=== PATIENT | female | born 1965 | race Two or more races ===

== ENCOUNTER 2022-09-01 08:05 | Outpatient (REF) | payer OTHER, SELFPAY ==
--- NOTE | ~2022-09-01 | XR_ITS ---
X-ray feet bilaterally CLINICAL HISTORY: Pain. COMPARISON: No relevant prior studies are available for comparison. TECHNIQUE: 3 views of each foot. FINDINGS: Right foot: No acute fractures or subluxation. Moderate hallux valgus with associated joint space narrowing and subcortical sclerosis of the first metatarsophalangeal joint. No erosions or chondrocalcinosis. No significant soft tissue abnormality. Left foot: No acute fractures or malalignment. 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 No erosions or chondrocalcinosis. No significant soft tissue abnormality. XR/XR foot RT min 3V IMPRESSION: 1. No acute fractures or malalignment. 2. 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
--- NOTE | ~2022-09-01 | XR_ITS ---
X-ray feet bilaterally CLINICAL HISTORY: Pain. COMPARISON: No relevant prior studies are available for comparison. TECHNIQUE: 3 views of each foot. FINDINGS: Right foot: No acute fractures or subluxation. Moderate hallux valgus with associated joint space narrowing and subcortical sclerosis of the first metatarsophalangeal joint. No erosions or chondrocalcinosis. No significant soft tissue abnormality. Left foot: No acute fractures or malalignment. 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 No erosions or chondrocalcinosis. No significant soft tissue abnormality. XR/XR foot LT min 3V IMPRESSION: 1. No acute fractures or malalignment. 2. 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
--- NOTE | ~2022-09-01 | XR_ITS ---
EXAMINATION: XR CERVICAL SPINE CLINICAL INFORMATION: Cervicalgia. COMPARISON: None available. TECHNIQUE: 3 views of the cervical spine were obtained. FINDINGS: Mild reversal of the cervical lordosis with apex at C4-C5. No acute compression deformity or evidence of traumatic subluxation. Prominent anterior osteophytes at C2-C3, C4-C5 and C5-C6 indenting upon the posterior pharynx/esophagus. Mild multilevel intervertebral disc height loss. Moderate multilevel uncovertebral hypertrophy, suboptimal evaluation of neural foraminal encroachment and central canal stenosis in the absence of oblique views. 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 No prevertebral soft tissue thickening. XR/XR cervical spine 3V IMPRESSION: 1. Nonspecific mild reversal of the cervical lordosis, likely degenerative. No evidence of acute compression deformity or traumatic subluxation. 2. Moderate multilevel cervical spondylosis. For evaluation of nerve root impingement and central canal stenosis, correlation with MRI is recommended if clinically deemed appropriate.
[2022-09-01 08:20] LABS: MANUAL DIFF FLAG NO
[2022-09-01 09:19] LABS: Basophils Percent Auto 0.7 % (0-2); Eosinophils Absolute Auto 0.1 X10*3/uL (0.0-0.4); Eosinophils Percent Auto 1.1 % (0-4); Hematocrit 34.7 % (37.0-47.0); Hemoglobin 11.5 g/dl (12.0-16.0); Lymphocytes Absolute Auto 2.1 X10*3/uL (1.2-4.9); Lymphocytes Percent Auto 46.8 % (20-40); Mean Corpuscular HGB Conc 33.1 g/dl (31.0-35.0); Mean Corpuscular Hemoglobin 31.1 pg (27.0-33.0); Mean Corpuscular Volume 93.8 fL (80.0-98.0); Monocytes Absolute Auto 0.3 X10*3/uL (0.1-1.2); Monocytes Percent Auto 6.3 % (2-11); Neutrophils Percent Auto 45.1 % (45-73); Platelet Count 173 X10*3/uL (160-400); Red Cell Distribution Width 11.5 % (11.0-16.0); White Blood Count 4.4 X10*3/uL (4.8-10.8)
[2022-09-01 09:32] LABS: Color Urine Yellow; Glucose Urine UA Negative (Negative); Leukocyte Esterase Urine Negative (Negative); Nitrite Urine Negative (Negative); PH 5.5 (5.0-9.0); Urine Blood Negative (Negative); Urine Ketones Negative (Negative); Urine Protein Negative (Neg-Trace)
[2022-09-01 09:35] LABS: Appearance Urine Clear
[2022-09-01 10:23] LABS: Alanine Aminotransferase 15 U/L (0-31); Albumin Level 4.1 g/dL (3.5-5.0); Alkaline Phosphatase 54 U/L (39-117); Anion Gap 11 (12-20); Aspartate Amino Transferase 21 U/L (5-31); Bilirubin Total 0.9 mg/dL (0.0-1.0); Blood Urea Nitrogen 15 mg/dL (9-16); Calcium 9.1 mg/dL (8.4-10.2); Carbon Dioxide 27 mmol/L (22-29); Chloride 110 mmol/L (96-108); Cholesterol 224 mg/dL; Estimated Glomerular Filt Rate > 60; Glucose Fasting 92 mg/dL (60-99); HDL Cholesterol 49 mg/dL; LDL Cholesterol Calculated 157 mg/dl; Potassium 4.3 mmol/L (3.3-5.1); Sodium 144 mmol/L (135-145); Total Protein 6.4 g/dL (6.5-8.0); Triglycerides 93 mg/dL
[2022-09-01 11:02] LABS: Folate 9.9 ng/mL (> or = 4.0); TSH reflex Free T4 1.38 uIU/mL (0.32-4.0); Vitamin B12 535 pg/mL (200-900); Vitamin D 25-OH Total 21.8 ng/mL (>30)
== END 2022-09-01 08:06 | disposition home or self-care (01) ==
LOC: HO.LAB 08:05
PROVIDERS: Internal Medicine; PCP Internal Medicine; Visit Provider Internal Medicine
DX: Z00.00 Encounter for general adult medical examination without abnormal findings (principal); E55.9 Vitamin D deficiency, unspecified; E53.8 Deficiency of other specified B group vitamins; M79.674 Pain in right toe(s); M79.675 Pain in left toe(s); M54.2 Cervicalgia
CPT/HCPCS: 36415; 72040; 73630; 80053; 80061; 81003; 82306; 82607; 82746; 84443; 85025

== ENCOUNTER 2022-10-14 07:48 | Outpatient (REF) | payer OTHER, SELFPAY ==
[2022-10-20 09:14] LABS: HPV 16 RNA NOT DETECTED (NOT DETECTED); HPV mRNA E6/E7 rflx Detected (Not Detected)
== END 2022-10-14 07:49 | disposition home or self-care (01) ==
LOC: HO.LNP 07:48
PROVIDERS: PCP Internal Medicine; Visit Provider Advanced Practice Midwife
DX: Z01.419 Encounter for gynecological examination (general) (routine) without abnormal findings (principal)
CPT/HCPCS: 87624; 87625; 88142; 99202

== ENCOUNTER 2022-10-22 08:58 | Outpatient (REF) | payer OTHER, SELFPAY ==
--- NOTE | ~2022-10-22 | MM_ITS ---
EXAMINATION: MM SCREENING DIGITAL BREAST TOMOSYNTHESIS, BILATERAL CLINICAL INFORMATION: Screening. Asymptomatic. The lifetime risk of breast cancer based on the Tyrer-Cuzick Model is 5.3%. COMPARISON: Mammography: None available. TECHNIQUE: Digital breast tomosynthesis is performed in both the craniocaudal and mediolateral oblique views along with computer-aided detection (CAD). Synthesized 2D images are generated from the tomosynthesis. FINDINGS: The breasts are heterogeneously dense, which may obscure small masses (ACR BI-RADS breast composition Category c). About the medial aspect of the right breast, approximately 3 cm from the nipple, there is an oval, well-circumscribed density measuring approximately 9 x 6 mm in size for which spot compression view and possible ultrasound is recommended. The left breast appears unremarkable without any abnormal dominant mass or suspicious grouping of microcalcifications. MM/MM tomosynthesis screening BI IMPRESSION: Right breast density for further evaluation. ASSESSMENT: BI-RADS 0: Incomplete - Need additional imaging evaluation. RECOMMENDATION: 1. Additional views of the right breast. 2. Targeted ultrasound if warranted after review of the additional views. 3. Radiology department staff will contact the patient for additional imaging.
--- NOTE | 2022-10-22 09:02 | EMG_ITS ---
Right median and ulnar motor and sensory studies were performed. Right radial sensory study was performed and paraspinal muscles were tested with a needle. IMPRESSION: Mild right median neuropathy across carpal tunnel. MD ILIA Cheney/MARISSA / [id number]
== END 2022-10-22 08:59 | disposition home or self-care (01) ==
LOC: HO.NEURO 08:58
PROVIDERS: PCP Internal Medicine; Visit Provider Internal Medicine
DX: Z12.31 Encounter for screening mammogram for malignant neoplasm of breast (principal); R20.0 Anesthesia of skin
CPT/HCPCS: 77063; 77067; 95886; 95909

== ENCOUNTER 2022-10-29 07:53 | Outpatient (REF) | payer OTHER, SELFPAY ==
--- NOTE | ~2022-10-29 | MM_ITS ---
EXAMINATION: MM DIAGNOSTIC DIGITAL BREAST TOMOSYNTHESIS, RIGHT US DIAGNOSTIC ULTRASOUND BREAST, RIGHT CLINICAL INFORMATION: Recall from new baseline screening exam for nodular asymmetry central 3:00 right breast. COMPARISON: Mammography: 08/22/2022 (new baseline). TECHNIQUE: Digital breast tomosynthesis is performed. 2D images are generated from the tomosynthesis. The following views are obtained: Spot CC, spot MLO. Ultrasound is targeted to the medial breast using grayscale imaging and color Doppler without and with harmonics. FINDINGS: There are scattered areas of fibroglandular density (ACR BI-RADS breast composition Category b). The additional views confirm smooth oval nodule under 1 cm with smaller adjacent nodular asymmetry in the area for recall. No architectural abnormality. Ultrasound demonstrates incidental simple cyst 3:00 position 3 cm from nipple measuring approximately 6 x 5 mm. There is an adjacent satellite cyst measuring 6 x 2 mm. Both cysts show increased through-transmission of sound. No associated color flow. Results are discussed with the patient and family at time of visit. MM/MM tomosynthesis added views R IMPRESSION: Incidental small simple cysts central 3:00 right breast corresponding to finding on recent mammography. ASSESSMENT: BI-RADS 2: Benign RECOMMENDATION: Routine annual mammography screening. This patient's information was entered into a reminder system with a target due date for their next mammogram.
== END 2022-10-29 07:54 | disposition home or self-care (01) ==
LOC: HO.MAMMO 07:53
PROVIDERS: PCP Internal Medicine; Visit Provider Internal Medicine
DX: R92.2 Inconclusive mammogram (principal)
CPT/HCPCS: 76642; 77061; 77065